=== PATIENT | female | born 1975 | race African-American/Black ===

== ENCOUNTER 2023-07-09 22:01 | Emergency (ER) | payer SELFPAY ==
[~2023-07-09] VITALS: Ht 172.7 cm; Wt 118.0 kg
[2023-07-09 22:15] VITALS: BP 131/75; PULSE 77; RESP 16; TEMP 98.5; O2SAT 97
== END 2023-07-09 23:45 | disposition home or self-care (01) ==
LOC: ER 22:01
DX: R53.83 Other fatigue (principal); F41.0 Panic disorder [episodic paroxysmal anxiety]
CPT/HCPCS: 99283